=== PATIENT | male | born 1940 | race Two or more races ===

== ENCOUNTER 2020-10-07 08:47 | Outpatient (CLI) | payer OTHER | END 2020-10-07 09:07 | disposition home or self-care (01) | LOC: MAMO-SONO 08:47 | PROVIDERS: ATTEND Internal Medicine | DX: M54.2 Cervicalgia (principal); M51.36 Other intervertebral disc degeneration, lumbar region; N63.10 Unspecified lump in the right breast, unspecified quadrant; N63.21 Unspecified lump in the left breast, upper outer quadrant; N64.59 Other signs and symptoms in breast | CPT/HCPCS: 72148 ==

== ENCOUNTER 2021-05-17 08:12 | Outpatient (CLI) | payer OTHER | END 2021-05-17 08:14 | disposition home or self-care (01) | LOC: NUCLEAR 08:12 | PROVIDERS: ATTEND Internal Medicine | DX: I80.13 Phlebitis and thrombophlebitis of femoral vein, bilateral (principal) ==

== ENCOUNTER 2021-08-16 08:35 | Outpatient (CLI) | payer OTHER | END 2021-08-16 08:44 | disposition home or self-care (01) | LOC: SONOGRAMA 08:35 → EDSEX 08:35 → SONOGRAMA 08:44 | DX: R13.10 Dysphagia, unspecified (principal) ==

== ENCOUNTER 2021-08-20 07:42 | Outpatient (CLI) | payer OTHER | END 2021-08-20 07:45 | disposition home or self-care (01) | LOC: TOM 07:42 | DX: R19.4 Change in bowel habit (principal) ==

== ENCOUNTER 2021-08-30 10:04 | Outpatient (CLI) | payer OTHER | END 2021-08-30 10:12 | disposition home or self-care (01) | LOC: TOM 10:04 | DX: K51.50 Left sided colitis without complications (principal); N28.89 Other specified disorders of kidney and ureter ==

== ENCOUNTER 2021-12-15 09:02 | Outpatient (CLI) | payer OTHER | END 2021-12-15 09:14 | disposition home or self-care (01) | LOC: MAMO-SONO 09:02 | PROVIDERS: ATTEND Obstetrics & Gynecology | DX: Z12.31 Encounter for screening mammogram for malignant neoplasm of breast (principal); N60.11 Diffuse cystic mastopathy of right breast; N60.12 Diffuse cystic mastopathy of left breast ==

== ENCOUNTER 2021-12-23 12:35 | Outpatient (CLI) | payer OTHER | END 2021-12-23 12:36 | disposition home or self-care (01) | LOC: NUCLEAR 12:35 | DX: M81.8 Other osteoporosis without current pathological fracture (principal) ==

== ENCOUNTER 2024-02-16 12:27 | Emergency (ER) | payer OTHER ==
[~2024-02-16] VITALS: Ht 152.4 cm; Wt 65.8 kg
[2024-02-16] MEDS ORDERED: ATORVASTATIN CA20 MG PO (13:14)
[2024-02-16] MEDS ORDERED: LOSARTAN-HCTZ1 EACH PO (13:14)
[2024-02-16] MEDS ORDERED: HYDROCODONE/CHLORPHEN P-STIREX 5 ML ML PO STA (14:36)
[2024-02-16 15:32] LABS: HEMATOCRIT 37.2 % (36.0-45.00); HEMOGLOBIN 12.7 g/dL (12.0-15.00); MEAN CELL VOLUME 89.7 fL (80.00-100.00); MEAN CORPUSCULAR HEMOGLOBIN 30.7 pg (27.00-32.0); MEAN CORPUSCULAR HGB CONC 34.3 g/dl (32.0-36.0); PLATELET COUNT 234 K/uL (150-450); RED BLOOD COUNT 4.15 M/uL (4.00-6.00); RED CELL DISTRIBUTION WIDTH 13.4 % (11.5-14.5)
== END 2024-02-16 17:01 | disposition home or self-care (01) ==
LOC: ER 12:29
PROVIDERS: General Practice
DX: R05.8 Other specified cough (principal); E03.8 Other specified hypothyroidism; I10 Essential (primary) hypertension; Z85.89 Personal history of malignant neoplasm of other organs and systems; Z90.2 Acquired absence of lung [part of]; A49.3 Mycoplasma infection, unspecified site; Z20.822 Contact with and (suspected) exposure to COVID-19

== ENCOUNTER 2024-03-20 11:44 | Outpatient (CLI) | payer OTHER ==
[~2024-03-20 11:44] MED LIST: ATORVASTATIN CA20 MG PO; LOSARTAN-HCTZ1 EACH PO
== END 2024-03-20 11:54 | disposition home or self-care (01) ==
LOC: RAD 11:44
PROVIDERS: ATTEND Internal Medicine Cardiovascular Disease
DX: R06.02 Shortness of breath (principal); Z85.118 Personal history of other malignant neoplasm of bronchus and lung

== ENCOUNTER 2024-04-25 09:39 | Outpatient (CLI) | payer OTHER | END 2024-04-25 09:43 | disposition home or self-care (01) | LOC: NUCLEAR 09:39 | PROVIDERS: ATTEND Internal Medicine | DX: I80.3 Phlebitis and thrombophlebitis of lower extremities, unspecified (principal); I87.2 Venous insufficiency (chronic) (peripheral) ==

== ENCOUNTER → 2024-04-26 13:01 | Outpatient (CLI) | payer OTHER | END | disposition home or self-care (01) | LOC: NUCLEAR 13:01 | PROVIDERS: ATTEND Internal Medicine | DX: M81.0 Age-related osteoporosis without current pathological fracture (principal) ==

== ENCOUNTER 2024-11-20 10:37 | Emergency (ER) | payer OTHER ==
[~2024-11-20] VITALS: Ht 149.9 cm; Wt 63.5 kg
[2024-11-20] MEDS ORDERED: LOSARTAN POTAS100 MG PO (11:01)
[2024-11-20] MEDS ORDERED: NORVASC2.5 M1 PO (11:01)
[2024-11-20] MEDS ORDERED: HYDRODIURIL12.5 MG PO (11:02)
[2024-11-20] MEDS ORDERED: MEMANTINE HCL10 MG PO (11:02)
== END 2024-11-20 12:56 | disposition home or self-care (01) ==
LOC: ER 10:37
DX: R68.83 Chills (without fever) (principal)

== ENCOUNTER 2024-12-13 08:34 | Outpatient (CLI) | payer OTHER ==
[~2024-12-13 08:34] MED LIST changes: +HYDRODIURIL12.5 MG PO; +LOSARTAN POTAS100 MG PO; +MEMANTINE HCL10 MG PO; +NORVASC2.5 M1 PO
== END 2024-12-13 08:40 | disposition home or self-care (01) ==
LOC: MAMO-SONO 08:34
PROVIDERS: ATTEND Internal Medicine Hematology & Oncology
DX: N63.0 Unspecified lump in unspecified breast (principal); N64.4 Mastodynia; D72.828 Other elevated white blood cell count; I10 Essential (primary) hypertension; E78.2 Mixed hyperlipidemia; E03.9 Hypothyroidism, unspecified; K57.30 Diverticulosis of large intestine without perforation or abscess without bleeding; K44.9 Diaphragmatic hernia without obstruction or gangrene; R10.13 Epigastric pain; K63.5 Polyp of colon
CPT/HCPCS: 72195

== ENCOUNTER 2024-12-19 12:01 | Outpatient (CLI) | payer OTHER | END 2024-12-19 12:04 | disposition home or self-care (01) | LOC: RAD 12:01 | PROVIDERS: ATTEND Internal Medicine Cardiovascular Disease | DX: R06.02 Shortness of breath (principal) ==